=== PATIENT | female | born 1960 | race Caucasian/White ===

== ENCOUNTER 2018-08-03 17:21 | Emergency (ER) | payer OTHER ==
[~2018-08-03] VITALS: Ht 152.4 cm; Wt 72.6 kg
[2018-08-03 17:32] VITALS: BP 121/81
[2018-08-03] MEDS ORDERED: NACL 0.9% 1,000 ML IV ONE (18:10)
[2018-08-03] MEDS ORDERED: ONDANSETRON 4 MG/2 ML VIAL IVP ONE (18:10)
[2018-08-03] MEDS ORDERED: KETOROLAC 60 MG/2 ML VIAL IM ONE (18:25)
[2018-08-03] MEDS: PROCHLORPERAZINE 5 MG TAB PO ONE ×2 (20:10→20:12)
[2018-08-03 20:20] VITALS: BP 112/65
== END 2018-08-03 20:20 | disposition home or self-care (01) ==
LOC: MED 17:21
DX: G43.909 Migraine, unspecified, not intractable, without status migrainosus (principal)
CPT/HCPCS: 81002; 81025; 96374; 96375; 99284; J1885; J2405; J7030; Q0164